=== PATIENT | male | born 1950 | race Caucasian/White ===

== ENCOUNTER 2017-07-11 05:44 | Day surgery (SDC) | payer OTHER ==
[2017-07-11] MEDS ORDERED: ceFAZolin 2 GM/DEXTROSE 100 ML IV ONE (05:51)
[2017-07-11] MEDS ORDERED: LIDOCAINE 1% 2 ML INJ ID PRN (06:17)
[2017-07-11] MEDS ORDERED: LR 1,000 ML IV ONE (06:17)
[2017-07-11] MEDS ORDERED: BUPIVACAINE 0.5% 30 ML SDV ONE (06:39)
--- NOTE | 2017-07-11 06:51 | PDHPUP ---
History & Physical Update H&P update statement: This history and physical update is based on an assessment of the patient which was completed after admission or registration (within 24 hours), but prior to the surgery/procedure. H&P update: H&P reviewed & patient examined, no change in patient's condition since H&P completed
[2017-07-11] MEDS ORDERED: PROPOFOL 200 MG/20 ML VIAL ONE (07:08)
[2017-07-11] MEDS ORDERED: fentaNYL 100 MCG/2 ML INJ ONE (07:08)
[2017-07-11] MEDS ORDERED: LIDOCAINE 2% 5 ML SDV ONE (07:09)
[2017-07-11] MEDS ORDERED: ROCURONIUM 50 MG/5 ML VIAL ONE (07:10)
[2017-07-11] MEDS ORDERED: DEXAMETHASONE 4 MG/ML VIAL ONE (07:20)
[2017-07-11] MEDS ORDERED: RANITIDINE 50 MG/2 ML VIAL ONE (07:20)
[2017-07-11] MEDS ORDERED: ONDANSETRON 4 MG/2 ML VIAL ONE (07:20)
[2017-07-11] MEDS ORDERED: VASOPRESSIN 20 UNIT/ML VIAL ONE (07:48)
[2017-07-11] MEDS ORDERED: GLYCOPYRROLATE 0.2 MG/1 ML VIAL ONE (07:48)
[2017-07-11] MEDS ORDERED: ALBUTEROL 3 ML DEYVIAL IH PRN (07:51)
[2017-07-11] MEDS ORDERED: NALOXONE HCL 0.4 MG/ML INJ IVP PRN (07:51)
[2017-07-11] MEDS ORDERED: HYDROCODONE/APAP 5/325 TAB PO PRN (07:51)
[2017-07-11] MEDS ORDERED: OXYCODONE/APAP 5/325 TAB PO PRN (07:51)
[2017-07-11] MEDS ORDERED: HYDROmorphONE/DILAUDID 1 MG/ML SYR IVP PRN (07:51)
[2017-07-11] MEDS ORDERED: fentaNYL 100 MCG/2 ML INJ IVP PRN (07:51)
[2017-07-11] MEDS ORDERED: ONDANSETRON 4 MG/2 ML VIAL IVP PRN (07:51)
--- NOTE | 2017-07-11 07:53 | PDANEPAE ---
ANE History of Present Illness Inguinal Hernia ANE Past Medical History - Cardiovascular History Hx Hypertension: No Hx Arrhythmias: No Hx Chest Pain: No Hx Coronary Artery / Peripheral Vascular Disease: No Hx CHF / Valvular Disease: Yes Hx Palpitations: No Cardiovascular History Comment: INVERTED P WAVE. AVR AND AORTA REPAIR W/SLEEVE - Pulmonary History Hx COPD: No Hx Asthma/Reactive Airway Disease: No Hx Recent Upper Respiratory Infection: No Hx Oxygen in Use at Home: No Hx Sleep Apnea: Yes Sleep Apnea Screening Result - Last Documented: Positive - Neurologic History Hx Cerebrovascular Accident: No Hx Seizures: No Hx Dementia: No - Endocrine History Hx Diabetes: Yes Endocrine History Comment: THYROIDECTOMY - Renal History Hx Renal Disorders: No - Liver History Hx Hepatic Disorders: No - Neurological & Psychiatric Hx Hx Neurological and Psychiatric Disorders: No - Cancer History Hx Cancer: Yes Cancer History Comment: THYROID CANCER - Congenital Disorder History Hx Congenital Disorders: No - GI History Hx Gastrointestinal Disorders: No - Chronic Pain History Chronic Pain: No - Surgical History Prior Surgeries: AORTIC VALVE REPLACEMENT. THYROIDECTOMY X2 SURG. NECK MASS REMOVED. APPENDECTOMY. INTESTINAL REPAIR ANE Review of Systems Review of systems is: negative - Exercise capacity METS (RN): 5 METS ANE Patient History - Allergies Allergies/Adverse Reactions: thimerosal [Thimerosal] Allergy (Intermediate, Verified 03/31/12 16:10) Other-Enter Comments - Home Medications Home Medications: Cholecalciferol Vit D3 [Vitamin D 1000 units (OTC)] 1,000 units PO DAILY [Last Taken 07/10/17] Levothyroxine [Synthroid 175 mcg (RX)] 175 mcg PO DAILY06 03/31/12 [Last Taken 07/11/17] [place]-3 Fatty Acids [Fish Oil 1000 mg (OTC)] 1,000 mg PO DAILY 03/31/12 [Last Taken 03/26/12] Aspirin 325 mg (*) 07/10/17 [Last Taken 07/10/17] Herbals/Supplements -Info Only 07/10/17 [Last Taken Unknown] - NPO status NPO Since - Liquids (Date): 07/10/17 NPO Since - Liquids (Time): 21:00 NPO Since - Solids (Date): 07/10/17 NPO Since - Solids (Time): 19:00 - Smoking Hx Smoking Status: Former smoker - Family Anes Hx Family Hx Anesthesia Complications: NEG ANE Labs/Vital Signs - Vital Signs Blood Pressure: 145/91 Heart Rate: 51 Respiratory Rate: 16 O2 Sat (%): 95 Height: 177.8 cm Weight: 81.647 kg ANE Physical Exam - Airway Neck exam: FROM Mallampati Score: Class 2 - Pulmonary Pulmonary: clear to auscultation - Cardiovascular Cardiovascular: regular rate and rhythym - ASA Status ASA Status: III ANE Anesthesia Plan Anesthesia Plan: general endotracheal anesthesia
--- NOTE | 2017-07-11 08:35 | POSTOPPROG ---
Post Op Note Date of Operation: 07/11/17 Surgeon: April Rausch Public Relations Counselor: chivo Anesthesiologist: geovani Anesthesia: GET(General Endotracheal) Pre-op Diagnosis: Left inguinal hernia Post-op Diagnosis: pantaloon hernia Indication: 67 yo with inguinal hernia Procedure: lap left inguinal hernia repair with mesh Findings: large direct and indirect left hernia. None on right Inf/Abcess present in the surg proc area at time of surgery?: No EBL: Minimal Specimen(s): none
--- NOTE | 2017-07-11 08:50 | POSTANESTH ---
Post Anesthetic Evaluation Cardiovascular Status: Normal, Stable Respiratory Status: Normal, Stable Level of Consciousness/Mental Status: Can Participate in Eval, Alert and Oriented Pain Control: Adequate, Prn Tx Ordered Nausea/Vomiting Control: Adequate, Prn Tx Ordered Complications Possibly Related to Anesthesia: None Noted
[2017-07-11 09:31] VITALS: TEMP 97.2
--- NOTE | 2017-07-11 09:34 | GOP ---
[f rep st] OPERATIVE REPORT DATE OF OPERATION: 07/11/2017 SURGEON: April Rausch MD PRINCIPAL STATISTICAL SCIENTIST: Merari Pinedo PA-C ANESTHESIA: General. ANESTHESIOLOGIST: Sascha Quiles DO PREOPERATIVE DIAGNOSIS: Left inguinal hernia. POSTOPERATIVE DIAGNOSIS: Left pantaloon hernia. PROCEDURE PERFORMED: Laparoscopic left inguinal hernia repair with mesh. FINDINGS: He had both a direct and indirect hernia, both of which were large. He did not have a hernia on the right side. SPECIMENS: None. ESTIMATED BLOOD LOSS: 10 cc. INDICATIONS: The patient is a 67-year-old man who had a left inguinal bulge. DESCRIPTION OF PROCEDURE: The patient was brought into the operating room and placed supine on the table, and general anesthesia was administered. His abdomen was prepped and draped in the usual sterile fashion. I infiltrated all sites with 0.5% Marcaine prior to making incisions. I made an incision beneath his umbilicus. I dissected down through the skin and subcutaneous tissues. I encountered the anterior rectus sheath and divided it. I swept his rectus muscles laterally and inserted a balloon-tip trocar directed toward the pubis. I inserted the camera, and I performed hand insufflation. I then exchanged this balloon for the working balloon. He was placed in the Trendelenburg position. Pressure was obtained at 15 mmHg. Under direct vision, placed a 5 mm suprapubic trocar and a 5 mm trocar between the 1st and 2nd trocars. I cleared the space laterally. He had a very obvious indirect hernia. I identified the pubis and cleared the pubis. Attention was drawn to the indirect hernia, and I fully reduced the peritoneum. There was a small breach in the peritoneum, as it was quite adhered to the cord and cord structures. I clipped the peritoneum together. He also had a large fullness medially, and I explored this further and found that he also had a large direct hernia. I fully reduced all the preperitoneal fat from this area. The inferior epigastric vessels were kept anterior to the plane. I placed a piece of laparoscopic self-fixating ProGrip mesh to cover the direct, indirect, and femoral spaces. This was tacked to the pubis and anterior. Next, I explored the right side, and no hernias were noted. The preperitoneal space was allowed to desufflate. I then opened the posterior rectus sheath at the umbilicus to allow some intraabdominal air to escape. I then closed the fascia with 0 Vicryl , skin closed with 4-0 Monocryl, and Dermabond applied. He was awakened in the operating room, extubated, and transferred to PACU in stable condition. /[id number]/MODL MTDD
[2017-07-11 10:39] VITALS: BP 130/79; PULSE 52; RESP 17; O2SAT 94
== END 2017-07-11 10:20 | disposition home or self-care (01) ==
LOC: FSGY 05:44
PROVIDERS: ATTEND Surgery
PROC: 0YU64JZ Supplement Left Inguinal Region with Synthetic Substitute, Percutaneous Endoscopic Approach (ICD-10-PCS; principal; 2017-07-11 07:15)
DX: K40.90 Unilateral inguinal hernia, without obstruction or gangrene, not specified as recurrent (principal); E78.5 Hyperlipidemia, unspecified; E03.9 Hypothyroidism, unspecified; Z87.891 Personal history of nicotine dependence; Z95.3 Presence of xenogenic heart valve; Z85.850 Personal history of malignant neoplasm of thyroid; Z82.49 Family history of ischemic heart disease and other diseases of the circulatory system
CPT/HCPCS: 49650; C1727; C1781; J0690; J1100; J2405; J2704; J2780; J3010

== ENCOUNTER 2017-07-13 04:29 | Emergency (ER) | payer OTHER ==
[2017-07-13 05:02] VITALS: BP 128/82; PULSE 60; RESP 16; TEMP 97.9; O2SAT 97
--- NOTE | 2017-07-13 05:04 | EDPHY ---
H & P Stated Complaint: HERNIA SURGERY ON FRIDAY NO B.M. HPI/ROS: HPI CHIEF COMPLAINT: Constipation HISTORY OF PRESENT ILLNESS: This patient is 67-year-old male presents emergency room as he is constipated. He states he had surgery on Friday and has been unable to have a bowel movement. He denies any significant abdominal pain but decided come to the emergency room as he has not had a bowel movement has been straining. Past Medical History: No significant medical history Past Surgical History: Recent inguinal hernia repair. Social History: Denies daily use of drugs alcohol tobacco products. Family History: Noncontributory ROS REVIEW OF SYSTEMS: A comprehensive 10 point review of systems is otherwise negative aside from elements mentioned in the history of present illness. Exam Constitutional appears well nontoxic no acute distress triage nursing summary reviewed, vital signs reviewed, awake/alert. Eyes normal conjunctivae and sclera, EOMI, PERRLA. HENT normal inspection, atraumatic, moist mucus membranes, no epistaxis, neck supple/ no meningismus, no raccoon eyes. Respiratory clear to auscultation bilaterally, normal breath sounds, no respiratory distress, no wheezing. Cardiovascular rate normal, regular rhythm, no murmur, no edema, distal pulses normal. Gastrointestinal soft, non-tender, no rebound, no guarding, hyperactive bowel sounds , no distension, no pulsatile mass. Laparoscopic incision sites clean, dry and intact. Genitourinary no CVA tenderness. Musculoskeletal no midline vertebral tenderness, full range of motion, no calf swelling, no tenderness of extremities, no meningismus, good pulses, neurovascularly intact. Skin pink, warm, & dry, no rash, skin atraumatic. Neurologic awake, alert and oriented x 3, AAOx3, moves all 4 extremities equally, motor intact, sensory intact, CN II-XII intact, normal cerebellar, normal vision, normal speech. Psychiatric normal mood/affect. Heme/Lymph/Immune no lymphadenopathy. Differential Diagnosis: Includes but is not limited to in a particular order, bowel obstruction, constipation, fecal impaction Medical Decision Making: Plan for this patient x-ray KUB to rule out free air or bowel obstruction gas pattern. Re-evaluation: ED x-ray KUB: Shows significant amount of stool. No evidence of free air or bowel obstruction. 0708AM: Patient received an enema. He had a rather large bowel movement in emergency room is feeling much better he would like to be discharged home. Re- examination is abdomen is soft nontender no guarding or peritoneal signs. KUB shows constipation or I will put him on MiraLax for the next 2 days he is encouraged to drink lots of fluids. Eat a regular meal. Return emergency room if worsening abdominal pain fever vomiting. Source: Patient - Personal History Current Tetanus/Diphtheria Vaccine: Yes Current Tetanus Diphtheria and Acellular Pertussis (TDAP): Yes Tetanus Vaccine Date: 01-12 - Medical/Surgical History Hx Asthma: No Hx Chronic Respiratory Disease: No Hx Diabetes: Yes Hx Cardiac Disease: Yes Hx Renal Disease: No Hx Cirrhosis: No Hx Alcoholism: No Hx HIV/AIDS: No Hx Splenectomy or Spleen Trauma: No Other PMH: THYROID CA WITH REMOVAL, HEART VALVE REPLACEMENT, HERNIS WITH REPAIR , DIVORTICULITIS - Social History Smoking Status: Former smoker Constitutional: Initial Vital Signs Temperature (C) 36.6 C 07/13/17 04:30 Heart Rate 60 07/13/17 04:30 Respiratory Rate 16 07/13/17 04:30 Blood Pressure 128/82 H 07/13/17 04:30 O2 Sat (%) 97 07/13/17 04:30 O2 Delivery Mode Room Air Allergies/Adverse Reactions: thimerosal [Thimerosal] Allergy (Intermediate, Verified 07/13/17 05:03) Other-Enter Comments Home Medications: Medication Instructions Recorded Cholecalciferol Vit D3 [Vitamin D3 1,000 units PO DAILY 03/31/12 (*)] Levothyroxine [Synthroid 175 mcg 175 mcg PO DAILY06 03/31/12 (*)] [place]-3 Fatty Acids [Fish Oil 1000 1,000 mg PO DAILY 03/31/12 mg (*)] Aspirin 325 mg (*) 07/10/17 Herbals/Supplements -Info Only 07/10/17 Hydrocodone/APAP 5/325 [[place] 1 - 2 tab PO Q6H PRN #20 tab 07/11/17 5/325 (*)] Polyethylene Glycol 3350 [Miralax 17 gm PO DAILY #4 pkt 07/13/17 17 gm (*)] Departure - Departure Disposition: Home, Routine, Self-Care Clinical Impression: Constipation Qualifiers: Constipation type: slow transit constipation Qualified Code(s): K59.01 - Slow transit constipation Condition: Good Instructions: Constipation (ED) Additional Instructions: 1. Please return emergency room if develops worsening abdominal pain fever vomiting. Referrals: Jackson Arias, [Primary Care Provider] - As per Instructions Prescriptions: Polyethylene Glycol 3350 [Miralax 17 gm (*)] 17 gm PO DAILY #4 pkt
== END 2017-07-13 07:16 | disposition home or self-care (01) ==
DX: K59.01 Slow transit constipation (principal); E11.9 Type 2 diabetes mellitus without complications; Z79.82 Long term (current) use of aspirin; Z85.850 Personal history of malignant neoplasm of thyroid; Z87.891 Personal history of nicotine dependence